=== PATIENT | female | born 1975 | race Caucasian/White ===

== ENCOUNTER 2019-08-10 15:30 | Emergency (ER) | payer MEDICAID ==
[~2019-08-10] VITALS: Ht 162.6 cm; Wt 65.8 kg
[2019-08-10 15:48] VITALS: BP_SYST 104
--- NOTE | 2019-08-10 15:48 | NUR ---
Patient to ER bed 2 to gown for evaluation. Side rails up. Report given to Isabella.
--- NOTE | 2019-08-10 16:00 | NUR ---
Patient presented to ER with C/O ETOH, patient brought in BLS, patient found on floor in [facility]. bathroom. Patient A&Ox4, skin pink & warm, afebrile, denies pain, denies N/V/D, Patient denies Health Hx. Patient placed on cardiac cath lab radiology technologist & pulse-ox monitor upon arrival.
--- NOTE | 2019-08-10 17:05 | NUR ---
ER Dr. Mendenhall at bedside examining patient.
--- NOTE | 2019-08-10 19:00 | NUR ---
Patient awake for vitals.
--- NOTE | 2019-08-10 19:20 | NUR ---
Report to Juan ISBELL
--- NOTE | 2019-08-10 19:40 | NUR ---
Fifi and juice provided.
[2019-08-10 19:52] VITALS: BP_SYST 122
--- NOTE | 2019-08-10 19:52 | NUR ---
Patient given written and verbal discharge instructions and verbalizes understanding. ER MD discussed with patient the results and treatment provided. Patient in stable condition. ID arm band removed. No Rx given. Patient educated on pain management and to follow up with PMD. Pain Scale 0/10. Opportunity for questions provided and answered. Medication side effect fact sheet provided. Homeless packet provided.
== END 2019-08-10 19:52 | disposition home or self-care (01) ==
LOC: SED 15:30
DX: F10.129 Alcohol abuse with intoxication, unspecified (principal); R03.0 Elevated blood-pressure reading, without diagnosis of hypertension; Z88.5 Allergy status to narcotic agent; Y90.8 Blood alcohol level of 240 mg/100 ml or more
CPT/HCPCS: 36415; 99283; G0482

== ENCOUNTER 2019-08-11 14:15 | Emergency (ER) | payer MEDICAID ==
[~2019-08-11] VITALS: Ht 162.6 cm; Wt 68.0 kg
[2019-08-11 14:20] VITALS: BP_SYST 120
--- NOTE | 2019-08-11 14:20 | NUR ---
Patient to ER bed 2 to gown for evaluation. Side rails up. Report given to AKILAH De La Cruz.
--- NOTE | 2019-08-11 14:50 | NUR ---
MD Burr at bedside.
[2019-08-11 15:12] LABS: BASOPHILS % (AUTO) 0.3 % (0.0-2.0); EOSINOPHILS # (AUTO) 0.1 K/uL (0.0-0.4); HEMATOCRIT 30.1 % (36-48); HEMOGLOBIN 9.6 g/dL (12.0-16.0); LYMPHOCYTES # (AUTO) 2.4 K/uL (1.0-5.5); LYMPHOCYTES % (AUTO) 45.4 % (20.5-51.5); MEAN CORPUSCULAR HEMOGLOBIN 28 pg (27-31); MEAN CORPUSCULAR HGB CONC 32 % (32-36); MEAN CORPUSCULAR VOLUME 87 fL (79.0-98.0); MONOCYTES # (AUTO) 0.3 K/uL (0.0-1.0); MONOCYTES % (AUTO) 5.1 % (1.7-9.3); NEUTROPHILS # (AUTO) 2.6 K/uL (1.8-7.7); NEUTROPHILS % (AUTO) 48.2 % (40.0-70.0); PLATELET COUNT (AUTO) 200 K/uL (130-430); RED BLOOD CELL COUNT(AUTO) 3.47 MIL/uL (4.2-6.2); RED CELL DISTRIBUTION WIDTH 19.8 % (9.0-15.0); WHITE BLOOD COUNT (AUTO) 5.3 K/uL (4.8-10.8)
--- NOTE | 2019-08-11 15:16 | NUR ---
RN assesses pt. pt is ETOH with hx of ETOH and liver cirrohsis. pt is stable. No distress.
[2019-08-11 15:21] LABS: ANION GAP 6 (5-15); CALCIUM 7.6 mg/dL (8.4-11.0); CHLORIDE 110 mmol/L (98-107); CREATININE 0.61 mg/dL (0.55-1.30); GFR AFRICAN AMERICAN 138 mL/min (>90); GLUCOSE 91 mg/dL (70-99); POTASSIUM 3.2 mmol/L (3.5-5.1); SODIUM SERUM 144 mmol/L (136-145); UREA NITROGEN, BLOOD 6 mg/dL (8-21)
[2019-08-11 15:28] LABS: ACETAMINOPHEN < 1 ug/mL (1-30); ALANINE AMINOTRANSFERASE 58 U/L (12-78); ALBUMIN 2.6 g/dL (3.4-4.8); ALCOHOL, BLOOD 341 mg/dL (<10); ASPARTATE AMINOTRANSFERASE 97 U/L (10-37); TOTAL BILIRUBIN 0.2 mg/dL (0.0-1.0)
[2019-08-11] MEDS ORDERED: NACL 0.9% 1,000 ML IV ONE (16:00)
--- NOTE | 2019-08-11 18:00 | NUR ---
Patient report received from AKILAH Jesus.
--- NOTE | 2019-08-11 18:05 | NUR ---
Patient states another nurse attempted an IV x2, she is refusing IV at this time. Education provided, no IV placed at this time. aware.
--- NOTE | 2019-08-11 18:40 | NUR ---
Patient resting comfortably, easily aroused with light stimulation. Patient needs are met at this time. Will continue to follow up.
--- NOTE | 2019-08-11 19:35 | NUR ---
Repeat ETOH 246. MD Burr made aware. Okay to let her rest for 1 hour, then once she is able to walk, she is able to leave.
--- NOTE | 2019-08-11 20:30 | NUR ---
Pt resting quietly, even and non-labored respirations, VSS. Pt easily awakens, denies c/o pain or discomfort, no needs verbalized at this time.
--- NOTE | 2019-08-11 21:20 | NUR ---
Pt able to stand and ambulate with steady gait. Pt placed to ER waiting room awaiting arrival of her friend.
[2019-08-11 21:28] VITALS: BP_SYST 118
--- NOTE | 2019-08-11 21:28 | NUR ---
Patient given written and verbal discharge instructions and verbalizes understanding. ER MD discussed with patient the results and treatment provided. Patient in stable condition. ID arm band removed. No Rx given. Patient educated on pain management and to follow up with PMD. Pain Scale 0/10. Opportunity for questions provided and answered. Medication side effect fact sheet provided.
[2019-08-13] MEDS ORDERED: BUPIVACAINE LIPOSOME/PF 266 MG/20 ML VIAL INFIL ONE (11:54)
== END 2019-08-11 21:28 | disposition home or self-care (01) ==
LOC: SED 14:15
DX: F10.129 Alcohol abuse with intoxication, unspecified (principal); Z88.5 Allergy status to narcotic agent; Y90.8 Blood alcohol level of 240 mg/100 ml or more
CPT/HCPCS: 36415; 80053; 85025; 99283; G0480; G0481; G0482; C9290